=== PATIENT | female | born 1970 | race African-American/Black ===

== ENCOUNTER 2020-03-05 11:20 | Emergency (ER) | payer OTHER ==
[~2020-03-05] VITALS: Ht 165.1 cm; Wt 77.3 kg
[~2020-03-05 11:20] MED LIST: CARB200T PO; HYDR-3421 PO; QUET300T2 PO
[2020-03-05] MEDS ORDERED: SODIUM CHLORIDE 0.9% 1,000 ML IV ONE (12:00)
[2020-03-05 12:11] LABS: BILIRUBIN,URINE NEGATIVE (NEGATIVE); GLUCOSE, URINE (UA) NEGATIVE (NEGATIVE); KETONES,URINE TRACE mg/dL (NEGATIVE); LEUKOCYTE ESTERASE ,URINE NEGATIVE (NEGATIVE); NITRATE,URINE NEGATIVE (NEGATIVE); OCCULT BLOOD,URINE NEGATIVE (NEGATIVE); PH,URINE 6.5 (5.0-8.0); PROTEIN,URINE NEGATIVE (NEGATIVE)
[2020-03-05 12:15] LABS: APPEARANCE,URINE HAZY (CLEAR)
[2020-03-05 12:32] VITALS: BP 100/74
== END 2020-03-05 12:45 | disposition home or self-care (01) ==
LOC: EMS 11:20
DX: M54.9 Dorsalgia, unspecified (principal); F17.210 Nicotine dependence, cigarettes, uncomplicated; F31.9 Bipolar disorder, unspecified; Z88.8 Allergy status to other drugs, medicaments and biological substances; Z79.899 Other long term (current) drug therapy
CPT/HCPCS: J7030